=== PATIENT | male | born 1970 | race Caucasian/White ===

== ENCOUNTER → 2018-03-30 | Outpatient (CLI) | payer OTHER ==
[2018-03-30 18:14] LABS: HEMATOCRIT 47.6 % (37.9-51.0); HEMOGLOBIN 16.6 g/dL (13.5-17.0); MEAN CORPUSCULAR HEMOGLOBIN 30.4 pg (27.0-33.4); MEAN CORPUSCULAR VOLUME 87 fl (80-97); PLATELET COUNT 256 10^3/uL (150-450); RED BLOOD COUNT 5.47 10^6/uL (4.35-5.55); RED CELL DISTRIBUTION WIDTH 12.9 % (11.5-14.0); WHITE BLOOD COUNT 7.9 10^3/uL (4.0-10.5)
== END ==
LOC: OD 17:54
PROVIDERS: ATTEND Nurse Practitioner
DX: D58.2 Other hemoglobinopathies (principal); E29.1 Testicular hypofunction; Z51.81 Encounter for therapeutic drug level monitoring; Z79.890 Hormone replacement therapy; Z79.899 Other long term (current) drug therapy
CPT/HCPCS: 36415; 84403; 85027